=== PATIENT | male | born 1980 | race African-American/Black ===

== ENCOUNTER 2017-08-03 23:15 | Inpatient (IN) | payer MEDICAID, OTHER ==
[~2017-08-03] VITALS: Ht 185.4 cm; Wt 93.0 kg
[~2017-08-03 23:15] MED LIST: DIVA250T4; DIVA500T3; KEPP250; KEPPSOL
[2017-08-04 04:09] LABS: BASOPHILS % 0.2 % (0.0-2.0); EOSINOPHILS % 0.8 % (0.0-5.0); HEMATOCRIT. 44.7 % (42.0-52.0); LYMPHOCYTES % 33.1 % (20.0-50.0); MEAN CORPUSCULAR HEMOGLOBIN 30.2 pg (28.0-32.0); MEAN PLATELET VOLUME 6.6 fl (7.4-10.4); MONOCYTES % 8.4 % (2.0-8.0); NEUTROPHILS % 57.5 % (40.0-76.0); PLATELET 372 x1000/uL (130-400); RED BLOOD CELL COUNT 4.97 mill/uL (4.7-6.1); RED CELL DISTRIBUTION WIDTH 16.1 % (11.6-14.6)
[2017-08-04 04:19] LABS: CHLORIDE 103 mEq/L (98-107)
[2017-08-04] MEDS ORDERED: VANCOMYCIN 1 G PREMIX 200 ML IV SCH ×2 (04:30→13:30)
[2017-08-04] MEDS ORDERED: PIPERACILLIN/TAZ 3.375G PREMIX 50 ML IV ONE (04:30)
[2017-08-04 07:50] VITALS: BP 101/72
[2017-08-04 12:00] VITALS: BP 110/73
[2017-08-04] MEDS ORDERED: CLONIDINE 0.1MG TABLET PO PRN (13:30)
[2017-08-04] MEDS ORDERED: IPRATROPIUM/ALBUTEROL 0.5-3(2.5)MG/3ML NEB INH PRN (13:30)
[2017-08-04] MEDS ORDERED: DIPHENHYDRAMINE 50MG/ML VIAL IV PRN (13:30)
[2017-08-04] MEDS ORDERED: ONDANSETRON HCL 4MG/2ML INJ IV PRN (13:30)
[2017-08-04] MEDS ORDERED: VANCOMYCIN 1250MG in DEXTROSE 5% WATER 250ML IV SCH (14:30)
[2017-08-04] MEDS ORDERED: LORAZEPAM 2MG/ML CPJ IV PRN (15:15)
[2017-08-04] MEDS: ENOXAPARIN 100MG/ML SYR SUBCUT SCH ×2 (15:25→22:30)
[2017-08-04 16:15] LABS: PROTHROMBIN TIME 10.6 sec (9.4-11.6)
[2017-08-04] MEDS: PIPERACILLIN/TAZ 3.375G PREMIX 50 ML IV SCH ×2 (16:59→22:31)
[2017-08-04] MEDS: LEVETIRACETAM 500MG TABLET PO SCH (17:02)
[2017-08-04] MEDS: DIVALPROEX SODIUM 250MG DR TABLET PO SCH (17:02)
[2017-08-04] MEDS: VANCOMYCIN 1250MG in DEXTROSE 5% WATER 250ML IV SCH (17:53)
[2017-08-04 18:12] VITALS: BP 132/79
[2017-08-04 19:30] VITALS: BP 114/48
[2017-08-04] MEDS ORDERED: IOHEXOL-350 100 ML BOTTLE ONE (21:16)
[2017-08-04 22:00] VITALS: BP 127/76
[2017-08-04 23:30] LABS: *AMPHETAMINES SCREEN URINE NEGATIVE (NEGATIVE); *BARBITURATES SCREEN URINE NEGATIVE (NEGATIVE); *BENZODIAZEPINES SCREEN URINE NEGATIVE (NEGATIVE); *COCAINE SCREEN URINE NEGATIVE (NEGATIVE); CANNABINOID URINE SCREEN PRESUMTIVE POSITIVE (NEGATIVE); METHADONE URINE SCREEN NEGATIVE (NEGATIVE); OPIATES URINE SCREEN NEGATIVE (NEGATIVE); PHENCYCLIDINE URINE SCREEN NEGATIVE (NEGATIVE)
[2017-08-05] VITALS (12 sets, daily range): BP systolic 117–143; BP diastolic 60–86
[2017-08-05] MEDS: VANCOMYCIN 1250MG in DEXTROSE 5% WATER 250ML IV SCH ×2 (00:58→09:11)
[2017-08-05] MEDS: PIPERACILLIN/TAZ 3.375G PREMIX 50 ML IV SCH ×4 (04:33→23:00)
[2017-08-05 07:36] LABS: EOSINOPHILS % 0.3 % (0.0-5.0); HEMATOCRIT. 43.2 % (42.0-52.0); HEMOGLOBIN. 14.5 g/dL (14.0-18.0); LYMPHOCYTES % 16.1 % (20.0-50.0); MEAN CORPUSCULAR HEMOGLOBIN 29.8 pg (28.0-32.0); MEAN CORPUSCULAR VOLUME 89.1 fL (80.0-94.0); MONOCYTES % 12.1 % (2.0-8.0); NEUTROPHILS % 70.5 % (40.0-76.0); PLATELET 327 x1000/uL (130-400); RED BLOOD CELL COUNT 4.85 mill/uL (4.7-6.1); RED CELL DISTRIBUTION WIDTH 15.5 % (11.6-14.6)
[2017-08-05 08:02] LABS: CHLORIDE 102 mEq/L (98-107); HDL CHOLESTEROL 69 mg/dL (40-59); LDL CHOLESTEROL 54 mg/dL (5-100)
[2017-08-05] MEDS: LEVETIRACETAM 500MG TABLET PO SCH ×2 (09:11→16:18)
[2017-08-05] MEDS: ENOXAPARIN 100MG/ML SYR SUBCUT SCH ×2 (09:12→21:14)
[2017-08-05] MEDS ORDERED: IOHEXOL-350 100 ML BOTTLE ONE (09:59)
[2017-08-05] MEDS: DIVALPROEX SODIUM 250MG DR TABLET PO SCH ×2 (10:27→16:18)
[2017-08-05] MEDS: HYDROCODONE/ACETAMINOPHEN 5/325MG TABLET PO PRN ×2 (10:54→20:29)
[2017-08-05] MEDS: IPRATROPIUM/ALBUTEROL 0.5-3(2.5)MG/3ML NEB HHN SCH ×2 (12:29→20:45)
[2017-08-05] MEDS: FOLIC ACID/VITAMIN B COMP W-C TABLET PO SCH (12:37)
[2017-08-05] MEDS: MULTIVITAMINS,THER W-MINERALS TABLET PO SCH (12:37)
[2017-08-05] MEDS: THIAMINE HCL 100MG TABLET PO SCH (12:37)
[2017-08-05 13:20] LABS: HEPATITIS B SURFACE ANTIGEN NEGATIVE
[2017-08-05 13:49] LABS: HEPATITIS A AB IGM NEGATIVE (NEGATIVE)
[2017-08-05] MEDS: VANCOMYCIN 1500MG in DEXTROSE 5% WATER 250ML IV SCH (21:13)
[2017-08-06] VITALS (9 sets, daily range): BP systolic 115–141; BP diastolic 55–78
[2017-08-06] MEDS: IPRATROPIUM/ALBUTEROL 0.5-3(2.5)MG/3ML NEB HHN SCH ×3 (02:46→13:35)
[2017-08-06] MEDS: PIPERACILLIN/TAZ 3.375G PREMIX 50 ML IV SCH (04:09)
[2017-08-06 07:15] LABS: BASOPHILS % 0.7 % (0.0-2.0); EOSINOPHILS % 1.4 % (0.0-5.0); HEMOGLOBIN. 14.8 g/dL (14.0-18.0); LYMPHOCYTES % 19.4 % (20.0-50.0); MEAN CORPUSCULAR HEMOGLOBIN 30.1 pg (28.0-32.0); MEAN CORPUSCULAR VOLUME 89.6 fL (80.0-94.0); MEAN PLATELET VOLUME 7.4 fl (7.4-10.4); MONOCYTES % 13.1 % (2.0-8.0); NEUTROPHILS % 65.4 % (40.0-76.0); PLATELET 323 x1000/uL (130-400); RED BLOOD CELL COUNT 4.91 mill/uL (4.7-6.1); RED CELL DISTRIBUTION WIDTH 15.6 % (11.6-14.6)
[2017-08-06 07:56] LABS: CHLORIDE 98 mEq/L (98-107)
[2017-08-06] MEDS: MULTIVITAMINS,THER W-MINERALS TABLET PO SCH (08:10)
[2017-08-06] MEDS: THIAMINE HCL 100MG TABLET PO SCH (08:10)
[2017-08-06] MEDS: DIVALPROEX SODIUM 250MG DR TABLET PO SCH (08:10)
[2017-08-06] MEDS: LEVETIRACETAM 500MG TABLET PO SCH (08:10)
[2017-08-06] MEDS: FOLIC ACID/VITAMIN B COMP W-C TABLET PO SCH (08:10)
[2017-08-06] MEDS: ENOXAPARIN 100MG/ML SYR SUBCUT SCH (08:11)
[2017-08-06 08:14] LABS: HIV SCREEN 4G Non Reactive (Non Reactive)
[2017-08-06] MEDS ORDERED: SODIUM HYPOCHLORITE (0.25%) 480ML SOLUTION (HALF STRENGTH) TOP SCH (09:00)
[2017-08-06] MEDS ORDERED: SILVER SULFADIAZINE 1% CREAM 50GM TOP SCH (09:00)
[2017-08-06] MEDS: VANCOMYCIN 1500MG in DEXTROSE 5% WATER 250ML IV SCH (10:12)
[2017-08-06] MEDS: HYDROCODONE/ACETAMINOPHEN 5/325MG TABLET PO PRN (10:20)
[2017-08-06] MEDS ORDERED: HYDR-4001 PO (12:44)
[2017-08-06] MEDS ORDERED: THIA100T72 PO (12:44)
[2017-08-06] MEDS ORDERED: KEPP500 PO (12:44)
[2017-08-06] MEDS ORDERED: NEPVIT PO (12:44)
[2017-08-06] MEDS ORDERED: DIVA250T4 PO (12:44)
[2017-08-06] MEDS ORDERED: CEPH-569 PO (12:44)
[2017-08-06] MEDS ORDERED: CEFTRIAXONE 2 G PREMIX 50 ML IV SCH (13:00)
== END 2017-08-06 15:27 | disposition home health service (06) | DRG 720 ==
LOC: ER 23:15 → 6EST 08-04 04:30 → ENRESERV 08-04 07:00 → 6EST 08-04 08:30 → 3WST 08-04 14:50
PROVIDERS: ADMIT Internal Medicine; ATTEND Internal Medicine
PROC: 4A00X4Z Measurement of Central Nervous Electrical Activity, External Approach (ICD-10-PCS; principal; 2017-08-05)
DX: A41.9 Sepsis, unspecified organism (principal); J96.00 Acute respiratory failure, unspecified whether with hypoxia or hypercapnia; G92 Toxic encephalopathy; E72.20 Disorder of urea cycle metabolism, unspecified; I82.411 Acute embolism and thrombosis of right femoral vein; J45.901 Unspecified asthma with (acute) exacerbation; T51.0X1A Toxic effect of ethanol, accidental (unintentional), initial encounter; L03.115 Cellulitis of right lower limb; I87.8 Other specified disorders of veins; I82.511 Chronic embolism and thrombosis of right femoral vein; G40.909 Epilepsy, unspecified, not intractable, without status epilepticus; E16.2 Hypoglycemia, unspecified; F31.9 Bipolar disorder, unspecified; F17.210 Nicotine dependence, cigarettes, uncomplicated; F12.90 Cannabis use, unspecified, uncomplicated; Z79.899 Other long term (current) drug therapy
CPT/HCPCS: 36415; 71045; 71275; 73590; 73721; 80048; 80061; 80202; 80305; 82140; 82962; 83735; 84443; 84484; 86705; 86709; 86803; 87070; 87077; 87186; 87340; 93005; 93306; 93923; 93971; 94640; 94664; 96365; 96367; 97022; 97162; 99285; J0696; J1650; J2405; J2543; J3370; J7060; J7620; Q9967